=== PATIENT | male | born 1970 | race American Indian/Alaskan Native ===

== ENCOUNTER 2020-11-15 13:34 | Emergency (ER) | payer BC ==
[2020-11-15 14:27] VITALS: BP 181/89
[2020-11-15 14:53] LABS: Basophils % (Auto) 0.6 % (0.0-1.8); Eosinophils # (Auto) 0.2 K/mm3 (0.0-0.4); Eosinophils % (Auto) 2.1 % (0.0-4.3); Hematocrit 41.3 % (35.5-45.6); Hemoglobin 13.6 gm/dl (11.8-15.2); Mean Corpuscular HGB Conc 33 % (32-34); Mean Corpuscular Volume 89 fl (84-94); Monocytes # (Auto) 0.5 K/mm3 (0.0-0.8); Monocytes % (Auto) 6.7 % (0.0-7.3); Platelet Count 265 K/mm3 (140-440); Red Blood Count 4.63 M/mm3 (3.65-5.03); Red Cell Distribution Width 12.8 % (13.2-15.2)
[2020-11-15 14:59] LABS: Bilirubin,Urine NEG (Negative); Blood,Urine SM (Negative); Color,Urine Yellow (Yellow); Mucus,Urine FEW /HPF; Urobilinogen,Urine < 2.0 mg/dL (<2.0)
--- NOTE | 2020-11-15 15:21 | Emergency Department Report ---
ED General Adult HPI - General Chief complaint: Hyperglycemia Stated complaint: DIABETIC Time Seen by Provider: 11/15/20 14:54 Source: patient Mode of arrival: Ambulatory Limitations: No Limitations - History of Present Illness Initial comments: 50-year-old male presents to the emergency room requesting medication refills. Patient states that he went to his primary care provider in 803 $300 and they would not see him. Patient denies any shortness of breath increased thirst chest pain abdominal pain nausea vomiting diarrhea fever or chills. Patient is requesting refills on his Metformin 1000 mg twice daily amlodipine 5 mg daily glipizide 10 mg daily lovastatin 20 mg daily lisinopril 20 mg daily. Patient states has been out of his meds for a week. Blood sugar in triage was 227 Onset/Timin -: week(s) Severity scale (0 -10): 0 - Related Data Previous Rx's Medication Instructions Recorded Last Taken Type Lovastatin [Altoprev] 20 mg PO QHS #30 tab.er.24h 11/15/20 Unknown Rx Metformin HCl [metFORMIN] 1,000 mg PO BID #60 tablet 11/15/20 Unknown Rx amLODIPine 5 mg PO DAILY #30 tab 11/15/20 Unknown Rx glipiZIDE [Glucotrol] 10 mg PO QDAY #30 tablet 11/15/20 Unknown Rx lisinopriL [Lisinopril] 20 mg PO QDAY #30 tablet 11/15/20 Unknown Rx Allergies Allergy/AdvReac Type Severity Reaction Status Date / Time No Known Allergies Allergy Unverified 11/15/20 13:43 ED Review of Systems ROS: Stated complaint: DIABETIC Other details as noted in HPI Comment: All other systems reviewed and negative ED Past Medical Hx - Past Medical History Previous Medical History?: Yes Hx Diabetes: Yes Additional medical history: Neuropathy, Leg pain - Surgical History Past Surgical History?: Yes Additional Surgical History: Liver lac - Social History Smoking Status: Never Smoker Substance Use Type: Alcohol - Medications Home Medications: Home Medications Medication Instructions Recorded Confirmed Last Taken Type Lovastatin [Altoprev] 20 mg PO QHS #30 tab.er.24h 11/15/20 Unknown Rx Metformin HCl [metFORMIN] 1,000 mg PO BID #60 tablet 11/15/20 Unknown Rx amLODIPine 5 mg PO DAILY #30 tab 11/15/20 Unknown Rx glipiZIDE [Glucotrol] 10 mg PO QDAY #30 tablet 11/15/20 Unknown Rx lisinopriL [Lisinopril] 20 mg PO QDAY #30 tablet 11/15/20 Unknown Rx ED Physical Exam - General Limitations: No Limitations General appearance: alert, in no apparent distress - Head Head exam: Present: atraumatic, normocephalic - Eye Eye exam: Present: normal appearance - ENT ENT exam: Present: normal exam - Neck Neck exam: Present: normal inspection, full ROM - Respiratory Respiratory exam: Present: normal lung sounds bilaterally. Absent: chest wall tenderness, accessory muscle use - Cardiovascular Cardiovascular Exam: Present: regular rate - Extremities Exam Extremities exam: Present: normal inspection, full ROM - Back Exam Back exam: Present: normal inspection, full ROM - Neurological Exam Neurological exam: Present: alert, oriented X3, normal gait - Psychiatric Psychiatric exam: Present: normal affect, normal mood - Skin Skin exam: Present: warm, dry, intact, normal color. Absent: rash ED Course Vital Signs 11/15/20 11/15/20 14:25 14:27 Temperature 98.7 F 98.7 F Pulse Rate 63 Respiratory 18 20 Rate Blood Pressure 181/89 Blood Pressure 181/89 [Right] O2 Sat by Pulse 99 Oximetry ED Medical Decision Making - Lab Data Result diagrams: 11/15/20 14:33 - Medical Decision Making 50-year-old male presents to the emergency room requesting medication refills. Patient states that he went to his primary care provider in 803 $300 and they would not see him. Patient denies any shortness of breath increased thirst chest pain abdominal pain nausea vomiting diarrhea fever or chills. Patient is requesting refills on his Metformin 1000 mg twice daily amlodipine 5 mg daily glipizide 10 mg daily lovastatin 20 mg daily lisinopril 20 mg daily. Patient states has been out of his meds for a week. Blood sugar in triage was 227 Critical care attestation.: If time is entered above; I have spent that time in minutes in the direct care of this critically ill patient, excluding procedure time. ED Disposition Clinical Impression: Medication refill Diabetes Qualifiers: Diabetes mellitus type: type 2 Diabetes mellitus psychological assistant insulin use: without psychological assistant use Diabetes mellitus complication status: without complication Qualified Code(s): E11.9 - Type 2 diabetes mellitus without complications Disposition: DC- TO HOME OR SELFCARE Is pt being admited?: No Does the pt Need Aspirin: No Condition: Stable Instructions: Diabetes Mellitus Type 2 in Adults (ED), Type 2 Diabetes Mellitus, Diagnosis, Adult Additional Instructions: You need to follow-up with your primary care provider the emergency room is not a clinic for your chronic disease management. Prescriptions: Lovastatin [Altoprev] 20 mg PO QHS #30 tab.er.24h amLODIPine 5 mg PO DAILY #30 tab glipiZIDE [Glucotrol] 10 mg PO QDAY #30 tablet lisinopriL [Lisinopril] 20 mg PO QDAY #30 tablet Metformin HCl [metFORMIN] 1,000 mg PO BID #60 tablet
[2020-11-15 15:34] LABS: Alanine Aminotransferase 14 units/L (7-56); Albumin 4.7 g/dL (3.9-5); BUN/Creatinine Ratio 20; Blood Urea Nitrogen 16 mg/dL (9-20); Calcium 9.4 mg/dL (8.4-10.2); Hemolysis Index 11
[2020-11-15] MEDS ORDERED: metFORMIN 500 MG TAB PO SCH (17:00)
== END 2020-11-15 15:59 | disposition home or self-care (01) ==
LOC: ED 13:34
DX: E11.42 Type 2 diabetes mellitus with diabetic polyneuropathy (principal); R07.89 Other chest pain; R19.7 Diarrhea, unspecified; R10.9 Unspecified abdominal pain; R11.2 Nausea with vomiting, unspecified; Z72.89 Other problems related to lifestyle; Z76.0 Encounter for issue of repeat prescription; Z79.899 Other long term (current) drug therapy
CPT/HCPCS: 36415; 80053; 81001; 82962; 83690; 85025; 99283